=== PATIENT | male | born 1985 | race Caucasian/White ===

== ENCOUNTER 2020-11-25 07:50 | Outpatient (CLI) | payer OTHER, BC, SELFPAY ==
[2020-11-25 08:22] LABS: Basophils Absolute Auto 0.07 K/mm3 (0.00-0.10); Basophils Percent Auto 0.8 % (0.0-1.0); Eosinophils Absolute Auto 0.24 K/mm3 (0.02-0.50); Eosinophils Percent Auto 2.9 % (1.0-6.0); Hematocrit 46.3 % (40.0-54.0); Immature Granulocyte Absolute 0.05 K/mm3 (0.00-0.00); Immature Granulocyte Percent A 0.6 % (0.0-0.0); Lymphocytes Absolute Auto 0.93 K/mm3 (1.10-4.50); Lymphocytes Percent Auto 11.1 % (18.0-42.0); Mean Corpuscular HGB Conc 34.6 g/dL (32.0-36.0); Mean Corpuscular Hemoglobin 29.9 pg (27.0-31.0); Mean Corpuscular Volume 86.5 fL (78.0-102.0); Mean Platelet Volume 11.5 fl (8.7-11.0); Monocytes Percent Auto 7.2 % (2.0-11.0); Neutrophils Absolute Auto 6.5 K/mm3 (1.7-7.2); Neutrophils Percent Auto 77.4 % (50.0-70.0); Platelet Count Result 226 K/mm3 (150-420); Red Blood Count 5.35 M/mm3 (4.70-6.10); Red Cell Distribution Width 12.8 % (11.6-14.4); White Blood Count 8.4 K/mm3 (4.8-10.8)
[2020-11-25 08:34] LABS: Add Urine Microscopic? YES; Appearance Urine Clear (Clear); Bilirubin Urine Negative (Negative); Blood Urine Negative (Negative); Color Urine Yellow (Yellow); Glucose Urine UA 3+ (Negative); Ketones Urine Trace (Negative); Leukocyte Esterase Ur Negative LEU/UL (Negative); Nitrate Urine Negative (Negative); Protein Urine Negative (Negative); Urobilinogen Urine 0.2 mg/dL (0.2-1.0)
[2020-11-25 08:38] LABS: RBC Urine 0-2 /hpf (0-2); WBC Urine 0-3 /hpf (0-3)
[2020-11-25 08:39] LABS: Bacteria Urine Trace /hpf; Squamous Epithelial Cell Urine Rare /hpf (Few)
[2020-11-25 08:40] LABS: Creatinine Urine 79.33 mg/dL (40-278); MALB Creatinine Ratio 16.3 mg/g (0-30); Microalbumin Urine Random < 13.0 mg/L
[2020-11-25 09:35] LABS: Alanine Aminotransferase 24 U/L (16-63); Albumin Level 3.8 g/dL (3.4-5.0); Alkaline Phosphatase 104 U/L (46-116); Anion Gap 11 mmol/L (8-16); Aspartate Amino Transferase 13 U/L (15-37); Bilirubin,Total 0.6 mg/dL (0.00-1.00); Blood Urea Nitrogen 18 mg/dL (7-18); Calcium 8.9 mg/dL (8.5-10.1); Carbon Dioxide 25 mmol/L (21-32); Chloride 100 mmol/L (98-108); Cholesterol 205 mg/dL (0-200); Estimated Glomerular Filt Rate > 60; Glucose 349 mg/dL (70-99); HDL Direct 47 mg/dL (40-60); LDL Cholesterol Calculated 140 mg/dL (<130); Osmolality Calculated 297 mOsm/kg (285-295); Potassium 4.7 mmol/L (3.5-5.1); Sodium 136 mmol/L (136-145); Total Protein 6.5 g/dL (6.4-8.2); Triglycerides 91 mg/dL (0-150)
[2020-11-25 10:23] LABS: Vitamin B12 379 pg/mL (193-986)
[2020-11-27 11:34] LABS: Vitamin D 25 Hydroxy 14 ng/mL (30-100)
[2020-11-28 11:03] LABS: Testosterone Free 107.5 pg/mL (35.0-155.0); Testosterone Total 698 ng/dL (250-1100)
== END 2020-11-25 07:51 | disposition home or self-care (01) ==
PROVIDERS: PCP Physician Assistant
DX: E10.8 Type 1 diabetes mellitus with unspecified complications (principal); E78.5 Hyperlipidemia, unspecified; Z79.899 Other long term (current) drug therapy
CPT/HCPCS: 36415; 80053; 80061; 81001; 82043; 82306; 82607; 82746; 83036; 84402; 84403; 84443; 85025

== ENCOUNTER 2022-08-12 00:05 | Emergency (ER) | payer OTHER, BC, SELFPAY ==
[2022-08-12 00:10] VITALS: BP 144/93; PULSE 100; RESP 18; TEMP 36.7; O2SAT 96
--- NOTE | 2022-08-12 00:15 | PC.NURSE ---
Pt given OJ to drink on arrival, orders from ERP obtained.
[2022-08-12] MEDS: DEXTROSE 5%/0.9% SOD CHL 1,000 ML 100 ML IV CONT (00:30)
--- NOTE | 2022-08-12 00:34 | ED.GENADULT ---
HPI - General Adult General Chief complaint: Unspecified Stated complaint: Low Blood Sugar Source: patient and family Mode of arrival: ambulatory History of Present Illness HPI narrative: this is a 37-year-old gentleman that presents with lower blood sugars, patient is insulin dependent and was out having a few drinks and took extra dose of insulin and felt queasy and faint without passing out and checked his blood sugar which was around 39, patient did eat and drink and tried to raise his blood sugars which did not increase right away and was brought to the ER with a blood sugar in the 40s currently his last checked blood sugar was 69 patient feels much better with no fever chills no chest pain no shortness of breath no abdominal pain no diarrhea constipation. Onset (ago): hour(s) Related Data Home Medications Medication Instructions Recorded Confirmed blood-glucose sensor (Dexcom G6 08/12/22 08/12/22 Sensor device) cholecalciferol (vitamin D3) 1,250 1,250 mcg PO WEEKLY 08/12/22 08/12/22 mcg (50,000 unit) capsule gabapentin 300 mg capsule 300 mg PO DAILY 08/12/22 08/12/22 insulin glargine U-300 conc 300 26 unit subcut HS 08/12/22 08/12/22 unit/mL (1.5 mL) subcutaneous pen (Toujeo SoloStar U-300 Insulin) insulin lispro 100 unit/mL See Rx Instructions .Route .COMPLEX 08/12/22 08/12/22 subcutaneous pen (Humalog KwikPen (U-100) Insulin) rosuvastatin 5 mg tablet 5 mg PO HS 08/12/22 08/12/22 semaglutide 0.25 mg or 0.5 mg (2 0.25 mg subcut WEEKLY 08/12/22 08/12/22 mg/1.5 mL) subcutaneous pen injector (Ozempic) Allergies Allergy/AdvReac Type Severity Reaction Status Date / Time Penicillins Allergy Unknown Verified 08/12/22 00:26 Review of Systems Review of Systems: All systems reviewed & are unremarkable except as noted in HPI and below PMFSH Past Medical History Medical History Diabetes mellitus Exam Narrative: patient received sugar drink/ soda and started on D5 normal saline half a L and recheck blood sugars Const: General: cooperative and healthy appearing HENMT: Head: normal to inspection Ears: hearing grossly normal bilaterally Face/Nose/Sinus: Normal external nose present Face and sinus: normal facial exam Mouth: Yes Normal oral and palatal mucosa present Throat: posterior oropharynx normal Eyes: Visual Blue: normal visual blue by confrontation Alignment and Position: alignment normal Neck: Neck: normal visual inspection Chest: Chest palpation & inspection: normal inspection of the chest Resp: Effort & Inspection: normal respiratory effort and able to speak in complete sentences Cardio: Jugular venous distension: no JVD Palpation: normal PMI Rate: regular rate Rhythm: regular rhythm GI: Inspection: normal to inspection : General: Yes bimanual renal exam normal bilaterally Urinary Catheter: Urinary Catheter: patent and draining Back/Spine/Pelvis: Back: no CVA tenderness Skin: General skin exam: normal color and no rashes or lesions noted Neuro: General: oriented to person, oriented to place and oriented to time Extrem: General: normal to inspection, full ROM and capillary refill normal Right lower extremity: normal to inspection Psych: Appearance: grossly normal and well kempt Mental Status: mental status grossly normal Course Course Emergency Course: patient received D5 normal saline half a L and blood sugars responded appropriately Critical Care Time Critical Care Time Critical Care Time: No Discharge Plan Discharge Clinical Impression: Hypoglycemia Patient Disposition: Home, Self-Care Condition: Stable Instructions: Antibiotic Form, Hypoglycemia in a Person with Diabetes (ED) Additional Instructions: continue current medical regimen follow-up primary care physician if symptoms persist or worsen. Prescriptions: No Action gabapentin 300 mg capsule 300 mg PO DAILY
[2022-08-12 00:55] LABS: Glucose Point of Care 169 mg/dl (65-105)
--- NOTE | 2022-08-12 00:55 | PC.NURSE ---
Pt monitoring his sugars per his Dsxcom machine, noted sugars slowly increasing, IVF infusing as per order, pt reports no sxs at this time and reports feeling better. Accucheck at 169, fluids dc'd per order and VSS.
[2022-08-12 00:58] VITALS: BP 138/84; PULSE 87; RESP 18; TEMP 36.6; O2SAT 99
--- NOTE | 2022-08-30 21:26 | PC.NURSE ---
Addendum entered by Ludmila Esquivel RN 08/30/22 21:50: IV fluids d5NS infused at 0055 complete on 08/12/22, `100ml infused, 900ml wasted. Original Note: IV infusion completed at 0110 before d/c home on 08/12/22
== END 2022-08-12 01:10 | disposition home or self-care (01) ==
PROVIDERS: Emergency Provider Emergency Medicine; PCP Physician Assistant
DX: E11.649 Type 2 diabetes mellitus with hypoglycemia without coma (principal); Z79.4 Long term (current) use of insulin
CPT/HCPCS: 82948; 96360; 99283; J7042

== ENCOUNTER 2023-05-22 15:30 | Outpatient (CLI) | payer OTHER, BC, SELFPAY ==
--- NOTE | ~2023-05-22 | CT_ITS ---
EXAMINATION: CTA chest PE protocol DATE: 05/22/2023 16:04 INDICATION: Dyspnea TECHNIQUE: Computed tomography (CT) pulmonary angiogram of the chest was performed with 100 mL Omnipa que-350 intravenous contrast. Additional 3D reconstructions utilizing coronal maximum intensity proje ction (MIP) were performed. Automated exposure control and iterative reconstruction technique were em ployed. The dose-length product was 393.04 mGy-cm. COMPARISON: 08/31/2018 FINDINGS: Diagnostic quality study demonstrating no pulmonary embolism. No significant change in a 9 mm left up per lobe nodule which given the 5 years interval stability is almost certainly benign. Mild discoid a telectasis at the lingula. No pneumonia, pulmonary edema, pleural effusion or pneumothorax. Heart siz e is normal. No pericardial effusion. Thoracic aorta is normal in caliber with no dissection. No sign ificant interval change in a likely reactive mildly prominent prevascular lymph node which measures 2 .6 x 1.0 cm. No pathologically enlarged, new or enlarging thoracic lymphadenopathy. Mild upper thorac ic levocurvature and lower thoracic dextrocurvature. IMPRESSION: 1. No pulmonary embolism or other acute cardiopulmonary disease. Reviewed, dictated and finalized at location A.
[2023-05-22 16:00] LABS: Estimated Glomerular Filt Rate > 60
== END 2023-05-22 15:31 | disposition home or self-care (01) ==
PROVIDERS: PCP Physician Assistant; Visit Provider Physician Assistant
DX: R06.00 Dyspnea, unspecified (principal)
CPT/HCPCS: 71275; Q9967

== ENCOUNTER 2024-05-02 11:45 | Outpatient (CLI) | payer OTHER, BC, SELFPAY ==
[2024-05-02 12:03] LABS: Basophils Absolute Auto 0.09 K/mm3 (0.00-0.10); Eosinophils Percent Auto 4.3 % (1.0-6.0); Hematocrit 48.4 % (40.0-54.0); Hemoglobin 17.2 g/dL (14.0-18.0); Immature Granulocyte Absolute 0.05 K/mm3 (0.00-0.00); Immature Granulocyte Percent A 0.5 % (0.0-0.0); Lymphocytes Absolute Auto 2.18 K/mm3 (1.10-4.50); Lymphocytes Percent Auto 23.6 % (18.0-42.0); Mean Corpuscular HGB Conc 35.5 g/dL (32-36); Mean Corpuscular Hemoglobin 29.5 pg (27.0-31.0); Mean Platelet Volume 10.7 fl (8.7-11.0); Monocytes Absolute Auto 0.73 K/mm3 (0.10-0.90); Monocytes Percent Auto 7.9 % (2.0-11.0); Neutrophils Absolute Auto 5.79 K/mm3 (1.70-7.20); Neutrophils Percent Auto 62.7 % (50.0-70.0); Platelet Count Result 300 K/mm3 (150-420); Red Blood Count 5.83 M/mm3 (4.70-6.10); Red Cell Distribution Width 13.2 % (11.6-14.4); White Blood Count 9.2 K/mm3 (4.8-10.8)
[2024-05-02 12:25] LABS: Hemoglobin A1C 5.7 % (<5.7)
[2024-05-02 13:06] LABS: Alanine Aminotransferase 42 U/L (16-63); Albumin Level 4.1 g/dL (3.4-5.0); Alkaline Phosphatase 81 U/L (46-116); Anion Gap 10 mmol/L (4-12); Aspartate Amino Transferase 24 U/L (15-37); Bilirubin,Total 0.4 mg/dL (0.00-1.00); Blood Urea Nitrogen 18 mg/dL (7-18); Carbon Dioxide 26 mmol/L (21-32); Chloride 102 mmol/L (98-108); Cholesterol 209 mg/dL (0-200); Estimated Glomerular Filt Rate > 60; Folic Acid 13.3 ng/mL (8.6->20); Free T4 Free Thyroxine 0.83 ng/dL (0.76-1.46); Glucose 184 mg/dL (70-99); HDL Direct 44 mg/dL (40-60); LDL Cholesterol Calculated 156 mg/dL (<130); Osmolality Calculated 292 mOsm/kg (285-295); Potassium 4.6 mmol/L (3.5-5.1); Sodium 138 mmol/L (136-145); Thyroid Stimulating Hormone 1.88 uIU/mL (0.36-3.74); Triglycerides 47 mg/dL (0-150); Vitamin B12 1516 pg/mL (193-986)
[2024-05-02 13:29] LABS: Prostate Specific Antigen 1.6 ng/mL (< OR = 4.0)
== END 2024-05-02 11:46 | disposition home or self-care (01) ==
PROVIDERS: PCP Physician Assistant; Visit Provider Physician Assistant
DX: E10.9 Type 1 diabetes mellitus without complications (principal); E78.5 Hyperlipidemia, unspecified; Z12.5 Encounter for screening for malignant neoplasm of prostate; Z79.899 Other long term (current) drug therapy
CPT/HCPCS: 36415; 80053; 80061; 82607; 82746; 83036; 84153; 84439; 84443; 85025; G0103

== ENCOUNTER 2024-07-06 15:19 | Emergency (ER) | payer OTHER, BC, SELFPAY ==
--- NOTE | ~2024-07-06 | XR_ITS ---
EXAM: XR finger 3rd LT min 2V DATE: 07/06/2024 16:00 HISTORY: distal Lt. 3rd digit puncture wound . COMPARISON: None available. FINDINGS: Normal mineralization. No fracture or dislocation. No lytic or blastic lesion. Joint space s and physes are maintained. No erosion or periosteal change. Soft tissues within normal limits. IMPRESSION: No acute osseous finding in the left third digit. No radiopaque foreign body or subcutane ous gas. Reviewed, dictated and finalized at location K. IMPRESSION: No acute osseous finding in the left third digit. No radiopaque for eign body or subcutaneous gas.
[2024-07-06 15:20] VITALS: BP 146/99; PULSE 93; RESP 16; TEMP 36.1; O2SAT 97
[2024-07-06] MEDS: KETOROLAC (*BKC) 60 MG/2 ML VIAL IM (15:53)
[2024-07-06] MEDS: TETANUS,DIPHTHERIA,AC PERTUSSIS ADULT 0.5 ML (ADACEL) IM (15:54)
--- NOTE | 2024-07-06 16:16 | ED.WOUNDLAC ---
HPI - Wound/Laceration General Chief Complaint: Wound/Laceration Stated Complaint: finger injury Time Seen by Provider: 07/06/24 15:44 Source: patient and family Mode of arrival: ambulatory Limitations: no limitations History of Present Illness HPI narrative: this is 39-year-old male history of diabetes presents with a puncture wound to his distal left 3rd finger after was doing some woodwork and screwed it went through his distal left 3rd finger sing a puncture wound currently there is some swelling pain with no numbness or tingling. Onset (ago): hour(s) Extremity Location: Left: hand ( puncture wound left 3rd finger) Place: home Patient tetanus UTD: No Context: accidental Related Data Home Medications Medication Instructions Recorded Confirmed blood-glucose sensor (Dexcom G6 08/12/22 08/12/22 Sensor device) cholecalciferol (vitamin D3) 1,250 1,250 mcg PO WEEKLY 08/12/22 08/12/22 mcg (50,000 unit) capsule gabapentin 300 mg capsule 300 mg PO DAILY 08/12/22 08/12/22 insulin glargine U-300 conc 300 26 unit subcut HS 08/12/22 08/12/22 unit/mL (1.5 mL) subcutaneous pen (Toujeo SoloStar U-300 Insulin) insulin lispro 100 unit/mL See Rx Instructions .Route .COMPLEX 08/12/22 08/12/22 subcutaneous pen (Humalog KwikPen (U-100) Insulin) rosuvastatin 5 mg tablet 5 mg PO HS 08/12/22 08/12/22 semaglutide 0.25 mg or 0.5 mg (2 0.25 mg subcut WEEKLY 08/12/22 08/12/22 mg/1.5 mL) subcutaneous pen injector (Ozempic) Allergies Allergy/AdvReac Type Severity Reaction Status Date / Time Penicillins Allergy Unknown Verified 08/12/22 00:26 Review of Systems Review of Systems: All systems reviewed & are unremarkable except as noted in HPI and below PMFSH Past Medical History Medical History Diabetes mellitus Exam Const: General: healthy appearing and no acute distress Nutritional Appearance: well nourished Orientation/consciousness: patient oriented x3 Limitations: no limitations Eyes: Conjunctivae: conjunctivae normal Resp: Effort & Inspection: normal respiratory effort Auscultation: clear to auscultation bilaterally Cardio: Rate: regular rate Rhythm: regular rhythm GI: GI Palp: Yes Soft to palpation Auscultation: normal bowel sounds Skin: Other: Puncture wound distal end of his left 3rd finger Neuro: General: moves all extremities Course Course Emergency Course: patient received a dose of 60mg IM Toradol and after reassessment pain level has improved, updated with his tetanus vaccine and x-ray performed and reviewed. Vital Signs Vital signs: Vital Signs Temperature 36.1 C L 07/06/24 15:20 Pulse Rate 93 07/06/24 15:20 Respiratory Rate 16 07/06/24 15:20 Blood Pressure 146/99 H 07/06/24 15:20 Pulse Oximetry 97 07/06/24 15:20 Oxygen Delivery Room Air 07/06/24 15:20 Temperature 36.6 C 07/06/24 16:50 Pulse Rate 84 07/06/24 16:50 Respiratory Rate 18 07/06/24 16:50 Blood Pressure 135/75 07/06/24 16:50 Pulse Oximetry 99 07/06/24 16:50 Oxygen Delivery Room Air 07/06/24 16:50 Critical Care Time Critical Care Time Critical Care Time: No Discharge Plan Discharge Clinical Impression: Puncture wound Patient Disposition: Home, Self-Care Condition: Stable Instructions: Antibiotic Form, Puncture Wound (ED) Additional Instructions: Advised patient to take medication as prescribed and follow with primary if symptoms persist or worsen. Prescriptions: New sulfamethoxazole-trimethoprim [Bactrim DS] 800-160 mg tablet 1 tablet PO Q12H Qty: 20 0RF No Action gabapentin 300 mg capsule 300 mg PO DAILY insulin lispro [Humalog KwikPen Insulin] 100 unit/mL insulin pen See Rx Instructions .ROUTE .COMPLEX Rx Instructions: per [facility] protocol rosuvastatin 5 mg tablet 5 mg PO HS cholecalciferol (vitamin D3) 1,250 mcg (50,000 unit) capsule 1
[2024-07-06 16:50] VITALS: BP 135/75; PULSE 84; RESP 18; TEMP 36.6; O2SAT 99
== END 2024-07-06 16:50 | disposition home or self-care (01) ==
PROVIDERS: Emergency Provider Emergency Medicine; PCP Physician Assistant
DX: S61.213A Laceration without foreign body of left middle finger without damage to nail, initial encounter (principal); E11.9 Type 2 diabetes mellitus without complications; Z23 Encounter for immunization; W27.0XXA Contact with workbench tool, initial encounter
CPT/HCPCS: 73140; 90471; 90715; 96372; 99283; J1885